=== PATIENT | female | born 1950 | race Caucasian/White ===

== ENCOUNTER 2017-10-13 06:06 | Day surgery (SDC) | payer OTHER ==
[~2017-10-13] VITALS: Ht 167.6 cm; Wt 92.9 kg
[~2017-10-13 06:06] MED LIST: ADALAT CC 60 MG60 MG PO; BENTYL10 MG PO; CALCIUM 500 +1 EACH PO; CHOLEST OFF PL450 MG PO; DIOVAN160 MG PO; FISH OIL 1,2001 EAC4 PO; PAXIL30 MG PO; PROTONIX40 MG PO; TYLENOL EXTRA500 MG PO
[2017-10-13 06:56] VITALS: BP 115/60
[2017-10-13 11:49] VITALS: BP 108/55
[2017-10-13 16:22] LABS: HEMATOCRIT 34.4 % (36.0-46.0); HEMOGLOBIN 10.7 G/DL (11.9-15.5); MCH 24.5 PG (29.0-34.0); MCHC 31.1 G/DL (30.0-36.0); MCV 78.9 FL (83-99); PLATELET COUNT 202 K/uL (156-360); RBC DIS.WIDTH-SD 48.8 % (39-53); RED BLOOD COUNT 4.36 M/uL (3.80-5.20); WHITE BLOOD COUNT 6.3 K/uL (4.1-10.2)
[2017-10-13 16:31] VITALS: BP 110/52
[2017-10-13 16:47] LABS: CHLORIDE 102 MEQ/L (99-109); CREATININE 1.3 MG/DL (0.6-1.3); GFR ESTIMATE (CALCULATED) 43 mL/min/; GLUCOSE 208 mg/dL (70-99); SODIUM 132 MEQ/L (136-147); UREA NITROGEN (BUN) 11 mg/dL (9-23)
[2017-10-13 20:29] VITALS: BP 106/53
[2017-10-14 00:05] VITALS: BP 110/53
[2017-10-14 03:39] VITALS: BP 107/50
[2017-10-14 05:57] LABS: HEMATOCRIT 31.7 % (36.0-46.0); HEMOGLOBIN 9.5 G/DL (11.9-15.5); MCH 23.7 PG (29.0-34.0); MCV 79.1 FL (83-99); PLATELET COUNT 179 K/uL (156-360); RBC DIS.WIDTH-CV 16.7 % (11.8-14.6); RBC DIS.WIDTH-SD 48.2 % (39-53); RED BLOOD COUNT 4.01 M/uL (3.80-5.20); WHITE BLOOD COUNT 9.7 K/uL (4.1-10.2)
[2017-10-14 06:08] LABS: CHLORIDE 106 MEQ/L (99-109); CREATININE 1.3 MG/DL (0.6-1.3); GFR ESTIMATE (CALCULATED) 43 mL/min/; POTASSIUM 4.3 MEQ/L (3.7-5.4); UREA NITROGEN (BUN) 12 mg/dL (9-23)
[2017-10-14 06:13] LABS: GLUCOSE 103 mg/dL (70-99); SODIUM 140 MEQ/L (136-147)
[2017-10-14 07:16] VITALS: BP 121/55
== END 2017-10-14 09:42 | disposition home or self-care (01) ==
LOC: SDC 06:06 → 2EAST 09:45 → 2SOUTH 09:45 → ENRESERV 10:10 → 2EAST 11:45 → SDC 12:48 → 2EAST 10-14 09:42
PROVIDERS: Obstetrics & Gynecology Gynecologic Oncology
PROC: 0UBL0ZZ Excision of Vestibular Gland, Open Approach (ICD-10-PCS; principal; 2017-10-13)
DX: N75.0 Cyst of Bartholin's gland (principal); K21.9 Gastro-esophageal reflux disease without esophagitis; Z87.891 Personal history of nicotine dependence
CPT/HCPCS: 80048; 85027; 88305; 93005; G0378; J0690; J1100; J1885; J2250; J2405; J3010; J7643; S0020